=== PATIENT | female | born 1955 | race African-American/Black ===

== ENCOUNTER → 2022-01-16 07:53 | Outpatient (BNVA) | payer MEDICARE, OTHER, SELFPAY | PROVIDERS: Visit Provider Nurse Practitioner Family | DX: G43.909 Migraine, unspecified, not intractable, without status migrainosus (principal); R51.9 Headache, unspecified; M54.2 Cervicalgia | CPT/HCPCS: 99202 ==

== ENCOUNTER → 2022-04-30 10:23 | Outpatient (BNVA) | payer MEDICARE, OTHER, SELFPAY | PROVIDERS: Visit Provider Nurse Practitioner Family | DX: G43.709 Chronic migraine without aura, not intractable, without status migrainosus (principal); M54.2 Cervicalgia | CPT/HCPCS: 99212 ==

== ENCOUNTER → 2022-11-06 07:56 | Outpatient (BNVA) | payer OTHER, MEDICARE, SELFPAY | PROVIDERS: Visit Provider Nurse Practitioner Family | DX: M54.2 Cervicalgia (principal); G43.909 Migraine, unspecified, not intractable, without status migrainosus; H93.19 Tinnitus, unspecified ear; U09.9 Post COVID-19 condition, unspecified | CPT/HCPCS: 99212 ==

== ENCOUNTER → 2022-11-13 13:40 | Outpatient (BNVA) | payer MEDICARE, OTHER, SELFPAY | PROVIDERS: Visit Provider Nurse Practitioner Family | DX: G43.709 Chronic migraine without aura, not intractable, without status migrainosus (principal); R51.9 Headache, unspecified | CPT/HCPCS: 99211 ==

== ENCOUNTER 2023-06-16 08:16 | Outpatient (AMB) | payer MEDICARE, OTHER, SELFPAY ==
[2023-06-16 08:25] VITALS: BP 136/82; BMI 37.7
--- NOTE | 2023-06-16 08:25 | MHC.OFFVIS ---
Intake Vital Signs 06/16/23 08:25 Height 5 ft 2 in Weight 206 lb BMI 37.7 BP 136/82 Blood Pressure Location Rt brachial Position Sitting Intake Visit Reasons: 3m Follow up Migraines/confirmed Intake Note: Patient presents for 3 month follow up. Allergies codeine [CODEINE] Allergy (Unknown, Verified 06/16/23 08:30) ABDOMINAL UPSET oxycodone [From PERCOCET] Allergy (Unknown, Verified 06/16/23 08:30) HALLUCINATIONS sumatriptan Adverse Reaction (Severe, Verified 06/16/23 08:30) Nausea Medication List - Last Reconciled 06/16/23 by Es Saleem, MAKAYLA albuterol 90 mcg/actuation mcg inhalation erenumab-aooe (Aimovig Autoinjector) 140 mg subcut ONCE 30 days famotidine 40 mg PO BEDTIME fluticasone propionate 50 mcg/actuation sprays intranasal gabapentin mg PO BID PRN lisinopril-hydrochlorothiazide 20-12.5 mg 1 tab PO DAILY magnesium oxide 400 mg PO BEDTIME 30 days meloxicam 15 mg PO DAILY PRN metformin 500 mg PO BID onabotulinumtoxinA (Botox) 200 units IM ONCE 12 weeks riboflavin (vitamin B2) 400 mg PO DAILY 30 days tizanidine 2 - 4 mg PO TID PRN HPI HPI Comments History of Present Illness Details 68-yr-old female presents for f/u visit. Pt states that her headaches are improved. Now having 3-4 less intense migraines per week. She can now tell the difference between her sinus headaches and the hungry headaches. She is tolerating Aimovig well- can be constipated, but metformin causes loose stools. Tries to increase her fiber- fruits and vegetables, and metamucil as needed. She felt that her BP was increasing after she started Aimovig- SBP up to 150s- so increased her lisinopril-HCTZ form 1 tab to 1.5 tabs qd. BP now is normotensive- has not taken her BP meds yet today. May hold Magnesium for loose stools. Uses Tylenol w/ a OTC allergy nasal spray which helps. Using Gabapentin at 7pm prn- cannot take too late as it causes am grogginess. Her neck muscles are still tight. Has switched flexeril to tizanidine- using as needed- causes less sleepiness. [facility] Medical History Asthma Diabetes GERD (gastroesophageal reflux disease) Hypertension Low back pain Obstructive sleep apnea Surgical History History of tonsillectomy H/O section H/O section Family History Father Heart attack Sepsis Diabetes Mother HTN (hypertension) Arthritis Household Members: None Alcohol intake: never Patient Tobacco Use Status: Never used Tobacco Review of Systems Const All systems reviewed & are unremarkable except as noted in HPI and below Physical Exam Vital Signs: Last Vital Signs BP 136/82 06/16/23 08:25 BMI result Body Mass Index 37.7 Const General: cooperative and no acute distress Orientation/consciousness: patient oriented x3 HEENT Head: Yes normocephalic Resp Effort & Inspection: normal respiratory effort and able to speak in complete sentences Neuro Other: Bilateral posterior cervical and upper trap tightness, tenderness. General: patient oriented x3, gait normal and CN's II-XI intact bilaterally Cognition (Neuro): normal cognition Motor exam (neuro): 5/5 motor strength present throughout Psych Appearance: grossly normal Mental Status: mental status grossly normal Speech and movement: Normal speech and movement present Affect: normal affect Attitude: cooperative Thought process: Normal thought process present Thought content: Normal thought content present Insight: Good insight present (Psych) Judgement: Good judgement present (Psych) Assessment & Plan Assessment & Plan (1) Chronic migraine without aura: Code(s): G43.709 - Chronic migraine without aura, not intractable, without status migrainosus (2) Headache: Comment: Episodes of brief stabbing head pains, ? Cervicogenic Code(s): R51.9 - Headache, unspecified (3) Cervicalgia: Code(s): M54.2 - Cervicalgia (4) Migraine: Comment: Migraine without aura. ? of 1 episode migraine with ocular aura. Code(s): G43.909 - Migraine, unspecified, not intractable, without status migrainosus Plan For acute migraine treatment: May continue as needed Tylenol. Previous migraine acute tx trials: sumatriptan- caused GI upset. Future considerations- Trial of alternate triptan or gepant. ? For migraine prevention treatment: Continue Aimovig 140mg sc q month. Continue to monitor BPs. Continue riboflavin 400 mg q.a.m. Continue magnesium 400 mg q.h.s.- may hold for loose stools. Patient has previously tried: Topiramate which was not tolerated. Amitriptyline- caused excessive drowsiness. Patient is not a candidate to try: Beta-blockers due to history of asthma. Future considerations: TCA, CGRP mab, Botox- previously not approved. ? For cervicalgia: C-spine XR - multilevel spondylosis, mild degenerative disease most predominant at C4-C5 Offered PT- however pt cannot commit to this at this time- d/t family obligations. Pt is interested in trying trigger point injections- will refer to PT. Tizanidine as needed- managed by PCP. Gabapentin as needed. Advised to use warm packs, stretches/ROM, trial yoga- info given on Xand Future considerations: Baclofen f/u in 6 months or sooner prn Orders: Referrals Pain Management Referral M54.2 - Cervicalgia Coding Level of Care Code Est Pt Level 4 (36099) Diagnoses Chronic migraine without aura G43.709 Headache R51.9 Cervicalgia M54.2 Migraine G43.909
== END 2023-06-16 09:21 | disposition home or self-care (01) ==
PROVIDERS: PCP Internal Medicine; Visit Provider Nurse Practitioner Family
DX: G43.709 Chronic migraine without aura, not intractable, without status migrainosus (principal); R51.9 Headache, unspecified; M54.2 Cervicalgia; G43.909 Migraine, unspecified, not intractable, without status migrainosus
CPT/HCPCS: 99214

== ENCOUNTER → 2023-06-16 08:16 | Outpatient (BNVA) | payer MEDICARE, OTHER, SELFPAY | PROVIDERS: PCP Internal Medicine; Visit Provider Nurse Practitioner Family | DX: M54.2 Cervicalgia (principal) | CPT/HCPCS: 99212 ==

== ENCOUNTER 2023-06-25 13:52 | Outpatient (AMB) | payer OTHER, MEDICARE, SELFPAY ==
[2023-06-25 14:06] VITALS: BP 144/89; PULSE 108; RESP 18; O2SAT 96; BMI 36.9
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
== END 2023-06-25 14:40 | disposition home or self-care (01) ==
PROVIDERS: PCP Internal Medicine; Referring Provider Nurse Practitioner Family; Visit Provider Registered Nurse Emergency
DX: M47.812 Spondylosis without myelopathy or radiculopathy, cervical region (principal)
CPT/HCPCS: 99204

== ENCOUNTER → 2023-06-25 13:52 | Outpatient (BNVA) | payer OTHER, MEDICARE, SELFPAY | PROVIDERS: PCP Internal Medicine; Referring Provider Nurse Practitioner Family; Visit Provider Registered Nurse Emergency | DX: M47.812 Spondylosis without myelopathy or radiculopathy, cervical region (principal) | CPT/HCPCS: 99202 ==

== ENCOUNTER 2023-08-04 06:08 | Outpatient (REF) | payer MEDICARE, OTHER, SELFPAY ==
--- NOTE | ~2023-08-04 | FL_ITS ---
EXAMINATION: XR FLUOROSCOPY WITH IMAGES CLINICAL INFORMATION: Spondylosis without myelopathy or radiculopathy, cervical region. Bilateral cervical injections. COMPARISON: None available. TECHNIQUE: Fluoroscopy Supervised By: Dr. Man Villatoro. Fluoroscopy Time: 60.5 seconds. Cumulative Dose: 11.62 mGy. DAP: Not available on this machine. Images: 8. FINDINGS: Images demonstrate needle placement and contrast injection adjacent to the bilateral lateral mid. Cervical spine FL/FL guidance in treatment room IMPRESSION: Fluoroscopy guidance for pain management procedure.
== END 2023-08-04 06:09 | disposition home or self-care (01) ==
LOC: CF 06:08
PROVIDERS: Visit Provider Anesthesiology
DX: M47.812 Spondylosis without myelopathy or radiculopathy, cervical region (principal); I10 Essential (primary) hypertension
CPT/HCPCS: 64490; 64491; J2795; Q9967

== ENCOUNTER 2023-08-04 07:59 | Outpatient (AMB) | payer OTHER, MEDICARE, SELFPAY ==
[2023-08-04 08:02] VITALS: BP 132/82; PULSE 70; RESP 16; O2SAT 97; BMI 36.9
--- NOTE | 2023-08-04 08:02 | MHC.OFFVIS ---
Intake Vital Signs 08/04/23 08:02 08/04/23 10:43 08/04/23 10:44 08/04/23 10:45 08/04/23 10:45 Height 5 ft 2 in 5 ft 2 in Weight 202 lb 202 lb BMI 36.9 36.9 BP 132/82 158/94 H 152/92 H 150/92 H 140/88 H Blood Pressure Location Lt brachial Rt brachial Rt brachial Rt brachial Lt brachial Position Sitting Sitting Supine Supine Supine Respiration 16 16 16 16 16 Pulse 70 61 Pulse Source Pulse Oximeter Pulse Oximeter Pulse Oximetry (%) 97 98 Oxygen Delivery Method Room Air Room Air Comment Pre-Op post-op 9:30 am 9:45 am 10:15 am Intake Visit Reasons: BILATERAL DIAGNOSTIC C3, C4, C5 MBB, bilateral diagnostic C4- C5- C Allergies codeine [CODEINE] Allergy (Unknown, Verified 08/04/23 11:21) ABDOMINAL UPSET oxycodone [From PERCOCET] Allergy (Unknown, Verified 08/04/23 11:21) HALLUCINATIONS sumatriptan Adverse Reaction (Severe, Verified 08/04/23 11:21) Nausea PFSH Medical History (Updated 08/04/23 @ 12:08 by MAKAYLA Yu) Obstructive sleep apnea Asthma Hypertension GERD (gastroesophageal reflux disease) Diabetes Low back pain Surgical History History of tonsillectomy H/O section H/O section Family History Father Heart attack Sepsis Diabetes Mother HTN (hypertension) Arthritis Social History Household Members: None Alcohol intake: never Patient Tobacco Use Status: Never used Tobacco Physical Exam Vital Signs: Last Vital Signs Pulse 61 08/04/23 10:43 Resp 16 08/04/23 10:45 BP 140/88 H 08/04/23 10:45 Pulse Ox 98 08/04/23 10:43 Oxygen Delivery Method Room Air 08/04/23 10:43 BMI result Body Mass Index 36.9 Results AMB Random Glucose (hemocue) AMB Random Glucose (hemocue) 93 mg/dL Last Edit by Isaiah Washington CMA on 08/04/23 13:14 Assessment & Plan Assessment & Plan (1) Facet arthritis of cervical region: Code(s): M47.812 - Spondylosis without myelopathy or radiculopathy, cervical region Plan: Bilateral C4-C4- C6 therapeutic medial branch block. ?Informed consent was explained to the patient. All questions were explained and answered.? The patient was taken inside the operating room where she was positioned prone on the operating table. Time-out was performed delineating correct site, side, the nature of the procedure, patient's allergy, preoperative antibiotic if needed.? All operating room staff was participating in OR time-out procedure. The back of the neck and upper back were prepped with ChloraPrep and draped with sterile towels.? Sterilely draped C-arm was brought over the operating field and sq picture of? C4-C5-C6 vertebrae were delineated on the screen.? Points of interest were delineated as lateral masses bilaterally of the vertebrae as above. The waste of each lateral mass was chosen as the target of the tip of the needles on AP view and lateral view was used as a safety view for the tips of the needles position.?? The projections of the point of interest to the skin were injected with the small amount of local anesthetic lidocaine 2% 1-1.5 cc.? After that 22 gauge 3and 1/2 inch? spinal needles were driven to the point of interest in tunnel vision fashion. After needles gently contacted the bone at the point of interests the needle was injected with small amount of the contrast. The injections did not demonstrate intravascular or intrathecal spread.. After that ropivacaine 0.5%-1cc. mixed with kenalog was injected into each location of the needles. ( total dose of Kenalog was 40 mgs).? Upon completion of the injections the needles were removed and sterile dressings were applied, the patient was a taken? outside of the operating room to recovery room - see as below . (2) Hypertension: Code(s): I10 - Essential (primary) hypertension Plan: After the patient stood up from the OR table she felt dizziness and drowsiness , she was taken to recovery room and her BP was measured . It was elevated to 156/92 mm Hg. She was given a glass of orange juice and allowed to rest. Her blood pressutre was measured every 15- 20 minutes.it went down a little bit but continue to stay elevated - see vital signs section. The patient wanted to go home but I recommended strongly for her to go to ER or urgent care to see why her blood pressure remains elevated . She went for the local wound care center was evaluated and sent home. She was instructed to take her regular medication lisinopril HCTZ. She was instructed to go to emergency room if her symptoms would become worse. We called patient next morning after the procedure and she reported only lower back pain. We did not request information about neck pain however patient denied dizziness drowsiness and vertigo. Orders: Orders FL guidance in treatment room 08/04/23 M47.812 - Spondylosis without myelopathy or radiculopathy, cervical region Coding Level of Care Code Procedure Only Diagnoses Facet arthritis of cervical region M47.812 Hypertension I10
[2023-08-04 10:43] VITALS: BP 158/94; PULSE 61; RESP 16; O2SAT 98; BMI 36.9
[2023-08-04 10:44] VITALS: BP 152/92; RESP 16
[2023-08-04 10:45] VITALS: BP 140/88; BP 150/92; RESP 16
== END 2023-08-04 10:21 | disposition home or self-care (01) ==
LOC: HO.PMCPRC 07:59
PROVIDERS: PCP Internal Medicine; Visit Provider Anesthesiology
DX: M47.812 Spondylosis without myelopathy or radiculopathy, cervical region (principal); I10 Essential (primary) hypertension
CPT/HCPCS: 64490; 64491

== ENCOUNTER 2023-08-04 11:09 | Outpatient (AMB) | payer MEDICARE, OTHER, SELFPAY ==
--- NOTE | 2023-08-04 11:14 | MHC.OFFWIV ---
Intake Vital Signs 08/04/23 11:15 08/04/23 11:44 Height 5 ft 2 in Weight 200 lb BMI 36.6 BP 140/90 H 140/88 H Blood Pressure Location Lt brachial Lt brachial Position Sitting Pulse 64 Pulse Source Pulse Oximeter Temp 97.2 F Temp Source Temporal Artery Scan Pulse Oximetry (%) 99 Oxygen Delivery Method Room Air Intake Visit Reasons: EP lightheaded off balance BP Intake Note: pt is here today lightheaded off balance bp strarted today after appt Patient Tobacco Use Status: Never used Tobacco Allergies codeine [CODEINE] Allergy (Unknown, Verified 08/04/23 11:21) ABDOMINAL UPSET oxycodone [From PERCOCET] Allergy (Unknown, Verified 08/04/23 11:21) HALLUCINATIONS sumatriptan Adverse Reaction (Severe, Verified 08/04/23 11:21) Nausea Do you need a note to return to daycare/school/sports/work: No HPI HPI Comments History of Present Illness Details Patient is a 68-year-old female in today for a sick visit. Patient has a chief complaint of lightheadedness and dizziness following cervical steroid injection. Patient had the injection 2 hours prior to this visit. She has a past medical history significant for migraines, hypertension, vertigo, and cervicalgia. She has a history of injections, states this is the 1st time she has felt dizzy afterwards. Denies nausea, vomiting, chest pain, shortness a breath, numbness, vomiting, diarrhea, fever. In office EKG obtained. EOM intact, cranial nerves 2-12 intact. Patient able to form heel to toe walking, heel to rojas, epxryf-cp-qfth rapidly. Negative Zee-Hallpike maneuver. [facility] Medical History (Updated 08/04/23 @ 12:08 by MAKAYLA Yu) Obstructive sleep apnea Asthma Hypertension GERD (gastroesophageal reflux disease) Diabetes Low back pain Surgical History History of tonsillectomy H/O section H/O section Family History Father Heart attack Sepsis Diabetes Mother HTN (hypertension) Arthritis Social History Household Members: None Alcohol intake: never Patient Tobacco Use Status: Never used Tobacco Review of Systems Const Details: Constitutional : No Weight loss, No Fever, No Chills, No Fatigue, No Malaise ENT/Mouth : No sore throat, No Rhinorrhea Eyes: No Eye Pain, No Swelling, No Redness Cardiovascular : No Chest Pain, No SOB, No Dyspnea on Exertion, No Orthopnea, No Edema, No Palpitations Respiratory : No Cough, No Sputum, No Wheezing Gastrointestinal : No Nausea, No Vomiting, No Diarrhea, No Constipation, No abdominal Pain, No Hematochezia, No Melena Genitourinary : No Dysuria, No Urinary Frequency, No Hematuria, Musculoskeletal : No joint pain, No Myalgias, No Joint Swelling Skin : No Skin Lesions, No rash Neuro : No Weakness, No Numbness, Admits some Dizziness, No Headache Psych : No Anxiety/Panic, No Depression Heme/Lymph: No Bruising, No Bleeding,No Lymphadenopathy Endocrine : No Polyuria, No Polydipsia All other systems reviewed and are negative Physical Exam Vital Signs: Last Vital Signs Temp 97.2 F 08/04/23 11:15 Pulse 64 08/04/23 11:15 BP 140/90 H 08/04/23 11:15 Pulse Ox 99 08/04/23 11:15 Oxygen Delivery Method Room Air 08/04/23 11:15 BMI result Body Mass Index 36.6 Patient's vital signs reviewed and stable. Const Other: Appearance: Alert.? Oriented X3.? No acute distress.? Head: Normocephalic, atraumatic, no step-offs or deformities Eyes: Pupils equal, round and reactive to light.? ENT: Pharynx normal.?TM intact and pearly alexander. Some sinus tenderness. Neck: Normal inspection.? Neck supple.?Full ROM CVS: Normal heart rate and rhythm.? Pulses normal.? Respiratory: No respiratory distress.? Breath sounds normal.? Abdomen: Soft and nontender.? Skin: Warma and Dry Extremities: No lower extremity edema.? Back: No midline tenderness, no C-spine tenderness, full range of motion. Neuro: Oriented X 3.? No motor deficit.? No sensory deficit. CN 2-12 intact Orientation/consciousness: patient oriented x3 Eyes Pupils: Equal, round and reactive pupils present Neuro General: patient oriented x3, gait normal, CN's II-XI intact bilaterally, deep tendon reflexes 2+ bilaterally and No [place] Hallpike Cranial nerves: Yes Equal, round and reactive pupils present, Yes Bilaterally intact EOM present and Yes Ability to bilaterally rotate head present Cognition (Neuro): normal cognition Motor exam (neuro): 5/5 motor strength present throughout, Pronator motor function not present and no tremor noted Sensory Exam: double simultaneous stimulation for sensation normal Coordination: xlcflh-lt-elfe test normal, hgkg-rj-aqya test normal and Romberg test negative Romberg Test: Negative Comatose Patient: corneal reflex present Office Procedures EKG [id number], Complete Assessment & Plan Assessment & Plan (1) Dizziness: Comment: Patient had in office EKG. Will draw labs. Patient negative Zee-Hallpike. Neuro exam negative. Patient has been instructed to take blood pressure measurements at home. Drink plenty of water. Patient has been educated on signs of worsening symptoms and when to report back to the walk-in clinic or when to present to the emergency room. Patient states she understands Code(s): R42 - Dizziness and giddiness Plan: Take your medications as prescribed. If you were prescribed antibiotics today, it is important that you take your medication to their entirety, do not skip any doses, do not finish them early. Follow-up with your primary care provider this week. Return to the emergency department with new or worsening symptoms. Such as fevers, chills, chest pain, shortness of breath, nausea, vomiting, dizziness, headache, vision changes, lethargy In case of emergency call 911 Plan Patient has been instructed to follow-up with PCP. If symptoms do not reside by this evening patient has been instructed to go the emergency room Orders: Orders Comprehensive Met. Panel Today Z91.89 - Other specified personal risk factors, not elsewhere classified Complete Blood Count Auto Diff Today R42 - Dizziness and giddiness UA CC w/rflx Micro + Cult Today E86.0 - Dehydration AMB EKG-In Office Today R42 - Dizziness and giddiness Coding Level of Care Code Est Pt Level 3 (14813) Diagnoses Dizziness R42 CPT Codes EKG - CPT: 11625-[id number], Complete ([id number]) Time Spent (min) 25
[2023-08-04 11:15] VITALS: BP 140/90; PULSE 64; TEMP 36.2; O2SAT 99; BMI 36.6
[2023-08-04 11:44] VITALS: BP 140/88
== END 2023-08-04 14:13 | disposition home or self-care (01) ==
PROVIDERS: PCP Internal Medicine; Visit Provider Nurse Practitioner Primary Care
DX: R42 Dizziness and giddiness (principal)
CPT/HCPCS: 82948; 93000; 99213

== ENCOUNTER 2023-08-04 12:04 | Outpatient (REF) | payer MEDICARE, OTHER, SELFPAY ==
[2023-08-04 13:29] LABS: Appearance Urine Clear; Color Urine Yellow; Glucose Urine UA Negative (Negative); Leukocyte Esterase Urine Negative (Negative); Nitrite Urine Negative (Negative); Specific Gravity - Urine <= 1.005 (1.005-1.025); Urine Blood Negative (Negative); Urine Ketones Negative (Negative); Urine Protein Negative (Neg-Trace)
[2023-08-04 13:30] LABS: MANUAL DIFF FLAG NO
[2023-08-04 13:33] LABS: Basophils Percent Auto 0.4 % (0-2); Eosinophils Absolute Auto 0.1 X10*3/uL (0.0-0.4); Eosinophils Percent Auto 2.8 % (0-4); Hematocrit 42.1 % (37.0-47.0); Hemoglobin 13.2 g/dl (12.0-16.0); Imm Gran Abs Auto 0.01 X10*3/uL (0.00-0.03); Imm Gran Pct Auto 0.2 % (0.0-0.4); Lymphocytes Absolute Auto 1.6 X10*3/uL (1.2-4.9); Lymphocytes Percent Auto 31.2 % (20-40); Mean Corpuscular HGB Conc 31.4 g/dl (31.0-35.0); Mean Corpuscular Hemoglobin 25.7 pg (27.0-33.0); Mean Corpuscular Volume 82.1 fL (80.0-98.0); Monocytes Absolute Auto 0.4 X10*3/uL (0.1-1.2); Monocytes Percent Auto 7.8 % (2-11); Neutrophils Absolute Auto 2.9 x10*3/uL (2.0-8.3); Neutrophils Percent Auto 57.6 % (45-73); Platelet Count 318 X10*3/uL (160-400); Red Blood Count 5.13 X10*6/uL (4.20-5.50); Red Cell Distribution Width 14.7 % (11.0-16.0)
[2023-08-04 14:08] LABS: Alanine Aminotransferase 28 U/L (0-31); Albumin Level 4.3 g/dL (3.5-5.0); Alkaline Phosphatase 88 U/L (39-117); Anion Gap 14 (12-20); Aspartate Amino Transferase 16 U/L (5-31); Bilirubin Total 0.3 mg/dL (0.0-1.0); Blood Urea Nitrogen 17 mg/dL (9-16); Calcium 10.1 mg/dL (8.4-10.2); Carbon Dioxide 27 mmol/L (22-29); Chloride 104 mmol/L (96-108); Estimated Glomerular Filt Rate 53; Glucose Random 86 mg/dL (60-115); Potassium 3.6 mmol/L (3.3-5.1); Sodium 141 mmol/L (135-145); Total Protein 7.5 g/dL (6.5-8.0)
== END 2023-08-04 12:05 | disposition home or self-care (01) ==
LOC: HO.HMGCLDS 12:04
PROVIDERS: Visit Provider Nurse Practitioner Primary Care
DX: R42 Dizziness and giddiness (principal); E86.0 Dehydration; M47.812 Spondylosis without myelopathy or radiculopathy, cervical region; Z91.89 Other specified personal risk factors, not elsewhere classified
CPT/HCPCS: 36415; 80053; 81003; 85025

== ENCOUNTER 2023-08-11 09:07 | Outpatient (AMB) | payer MEDICARE, OTHER, SELFPAY ==
[2023-08-11 09:16] VITALS: BP 158/94; PULSE 102; RESP 18; O2SAT 97; BMI 36.6
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
== END 2023-08-11 10:01 | disposition home or self-care (01) ==
PROVIDERS: PCP Internal Medicine; Visit Provider Registered Nurse Emergency
DX: M47.812 Spondylosis without myelopathy or radiculopathy, cervical region (principal)
CPT/HCPCS: 99214

== ENCOUNTER → 2023-08-11 09:07 | Outpatient (BNVA) | payer MEDICARE, OTHER, SELFPAY | PROVIDERS: PCP Internal Medicine; Visit Provider Registered Nurse Emergency | DX: M47.812 Spondylosis without myelopathy or radiculopathy, cervical region (principal); Z98.890 Other specified postprocedural states | CPT/HCPCS: 99212 ==

== ENCOUNTER 2023-09-18 11:00 | Outpatient (RCR) | payer MEDICARE, OTHER, SELFPAY ==
[2023-08-28 09:15] VITALS: BP 135/65; PULSE 78
== END 2023-12-08 07:58 | disposition home or self-care (01) ==
LOC: HO.PT 11:00
PROVIDERS: PCP Internal Medicine; Visit Provider Registered Nurse Emergency
DX: M47.816 Spondylosis without myelopathy or radiculopathy, lumbar region (principal)
CPT/HCPCS: 97110; 97140; 97162

== ENCOUNTER 2024-07-19 10:20 | Outpatient (AMB) | payer MEDICARE, OTHER, SELFPAY ==
--- NOTE | 2024-07-19 10:40 | A.OFFVIS_ITS ---
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 Required: No Allergies codeine [CODEINE] Allergy (Unknown, Verified 07/19/24 10:48) ABDOMINAL UPSET oxycodone [From PERCOCET] Allergy (Unknown, Verified 07/19/24 10:48) HALLUCINATIONS sumatriptan Adverse Reaction (Severe, Verified 07/19/24 10:48) Nausea Medication List - Last Reconciled 07/19/24 by MAKAYLA Pierce albuterol 90 mcg/actuation mcg inhalation atorvastatin (Lipitor) 10 mg PO DAILY erenumab-aooe (Aimovig Autoinjector) 140 mg subcut ONCE 30 days famotidine 40 mg PO BEDTIME fluticasone propionate 50 mcg/actuation sprays intranasal gabapentin mg PO BID PRN lisinopril-hydrochlorothiazide 20-12.5 mg 1 tab PO DAILY meloxicam 15 mg PO DAILY PRN metformin 500 mg PO BID riboflavin (vitamin B2) 400 mg PO DAILY 30 days Do you need a note to return to daycare/school/sports/work: No HPI Comments Details: 69-yr-old female presents for f/u visit for migraine. Pt reports the following interval medical history changes: She is having more back and neck pain. If she stands too long, she has low back pain w/ right thigh numbness. Notes her PCP has referred her to weight management. She also had a left trigger finger injection last month. Pt states that her headaches are improved since she had a cervical injection last yr. She now feels she has more of a more so left-sided pressure/sinus headache a/w photophobia, phonophobia, lightheadedness, activity intolerance. Now having 4 mild-moderate migraines per month. She has not had the Aimovig in several months, as she states pharmacy could not refill it for her. Patient has been using Tylenol and Chlorpheniramine as needed, with some effect. The Chlorpheniramine ?dries her out?. She is still prone to posterior cervical neck tightness, especially if she has been more active during the day. She states that she has been tried on baclofen and tizanidine, both of which do help. Better than the cyclobenzaprine. Gabapentin made her sleepy. [facility] Medical History Obstructive sleep apnea Asthma Hypertension GERD (gastroesophageal reflux disease) Diabetes Low back pain Surgical History History of tonsillectomy H/O section H/O section Family History Father Heart attack Sepsis Diabetes Mother HTN (hypertension) Arthritis Social History Household Members: None Alcohol intake: never Patient Tobacco Use Status: Never used Tobacco Physical Exam Vital Signs: Last Vital Signs Pulse 60 07/19/24 10:41 BP 115/68 07/19/24 10:41 Pulse Ox 98 07/19/24 10:41 Oxygen Delivery Method Room Air 07/19/24 10:41 BMI result Body Mass Index 37.0 Const General: cooperative and no acute distress Orientation/consciousness: patient oriented x3 HEENT Head: Yes normocephalic Resp Effort & Inspection: normal respiratory effort and able to speak in complete se ntences Neuro General: patient oriented x3, gait normal and CN's II-XI intact bilaterally Cognition (Neuro): normal cognition Motor exam (neuro): 5/5 motor strength present throughout Psych Appearance: grossly normal Mental Status: mental status grossly normal Speech and movement: Normal speech and movement present Affect: normal affect Attitude: cooperative Thought process: Normal thought process present Assessment & Plan Assessment & Plan (1) Migraine: Comment: Migraine without aura. ? of 1 episode migraine with ocular aura. Code(s): G43.909 - Migraine, unspecified, not intractable, without status migrainosus Category: Medical (2) Headache: Comment: Episodes of brief stabbing head pains, ? Cervicogenic Code(s): R51.9 - Headache, unspecified Category: Medical (3) Cervicalgia: Code(s): M54.2 - Cervicalgia Category: Medical Plan For acute migraine treatment: May continue as needed Tylenol. Hold Chlorpheniramine due to HTN. Trial Ubrogepant (Ubrelvy) 100mg tab, 1/2 - 1 tab (50-100mg) at onset of headache, may repeat in 2 hours. Max of 2 tabs (200mg) per 24 hours. May adjunct with OTC Tylenol 650mg q 4 hours, Ibuprofen 600mg q 6 hours, or Naproxen 440mg q 12 hrs prn. Do not take w/ Butalbital (Fioricet or Fiorinal). Potential adverse effects, include but are not limited to fatigue, nausea, dry mouth, constipation Previous migraine acute tx trials: sumatriptan- caused GI upset. Acute migraine treatment contraindications: Triptans due to HTN/HLD. ? For migraine prevention treatment: Hold Aimovig 140mg sc q month, as patient does not feel she currently needs it. Continue riboflavin 400 mg q.a.m. Continue magnesium 400 mg q.h.s.- may hold for loose stools. Continue lisinopril-HCTZ- prescribed for HTN, however lisinopril can be effective in migraine prevention Patient has previously tried: Topiramate which was not tolerated. Amitriptyline- caused excessive drowsiness. Patient is not a candidate to try: Beta-blockers due to history of asthma. Future considerations: TCA, CGRP mab, Botox- previously not approved. ? For cervicalgia: Resume baclofen 5 mg b.i.d. p.r.n. Encouraged patient to increase physical activity, could consider water aerobics/exercise classes at the local [facility]. Follow-up with pain management as scheduled. f/u in 6 months or sooner prn Medications: New ubrogepant (Ubrelvy) take at onset of migraine, may repeat in 2hrs (may take w/ Tylenol) 50 - 100 mg (0.5 - 1 x 100 mg) PO ONCE 30 days PRN 10 tabs 3RF migraine headache Changed From baclofen Do not take with other muscle relaxants 5 mg PO BID PRN 30 tabs 3RF muscle spasm To baclofen Do not take with other muscle relaxants 5 mg PO BID 30 days PRN 30 tabs 3RF muscle spasm Coding Level of Care Code Est Pt Level 4 (33576) Diagnoses Migraine G43.909 Headache R51.9 Cervicalgia M54.2
[2024-07-19 10:41] VITALS: BP 115/68; PULSE 60; O2SAT 98; BMI 37.0
== END 2024-07-19 11:28 | disposition home or self-care (01) ==
PROVIDERS: PCP Internal Medicine; Visit Provider Nurse Practitioner Family
DX: G43.909 Migraine, unspecified, not intractable, without status migrainosus (principal); R51.9 Headache, unspecified; M54.2 Cervicalgia
CPT/HCPCS: 99214

== ENCOUNTER → 2024-07-19 10:20 | Outpatient (BNVA) | payer MEDICARE, OTHER, SELFPAY | PROVIDERS: PCP Internal Medicine; Visit Provider Nurse Practitioner Family | DX: G43.909 Migraine, unspecified, not intractable, without status migrainosus (principal); R51.9 Headache, unspecified; M54.2 Cervicalgia | CPT/HCPCS: 99212 ==

== ENCOUNTER 2025-06-13 13:17 | Outpatient (AMB) | payer MEDICARE, OTHER, SELFPAY ==
--- OUTSIDE RECORDS SUMMARY | 2024-02-29 04:00 | XMS_ITS ---
Author Organization [employer] Address [address] [address] Care Team Providers Care Booking Officer Name Role Phone JOSE FRIEDMAN M.D. Primary Care Provider Un available Isabel Regalado Unavailable [phone] REASON FOR VISIT LR MEDICARE PE Encounters Encounter Location Date Provider Diagnosis [facility] [address] [address] 02/29/2024 Isabel Regalado Plan Of Treatment No Information Progress Notes * JADEN RENEEDOB: 6 (70 yo F)Acc No.[id number]:02/29/2024 PROGRESS NOTES Patient: JADEN MCMILLAN Appointment Provider: Alie Regalado M.D. :1955 A ge:68 Y S ex:Female Date:02/29/2024 Address:[address] [place], [place] [id number] Pcp:JOSE FRIEDMAN M.D. Subjective: * Chief Complaints: * 1 . LR MEDICARE PE. * Medical History: Objective: * Vitals: Assessment: Plan: * Treatment: * Images: Billing Information: * Visit Code: * Procedure Codes: * Electronic signature of Марина Regalado MD on 06/13/2025 at 05:06 PM EST Sign off status: Pending * Appointment Provider: Alie Regalado M.D. Date: 0 02/29/2024 Generated for Farnazi carmella/Kim/eTransmitting on: 08/13/2024 05:06 PM EST
--- OUTSIDE RECORDS SUMMARY | 2024-05-23 05:20 | XMS_ITS ---
Author Organization [employer] Address [address] [address] Care Team Providers Care Blender Laborer Name Role Phone JOSE FRIEDMAN M.D. Primary Care Provider Un available Isabel Regalado Unavailable [phone] REASON FOR VISIT LR MEDICARE PE Encounters Encounter Location Date Provider Diagnosis [facility] [address] [address] 05/23/2024 Isabel Regalado Plan Of Treatment No Information Progress Notes * JADEN RENEEDOB: (70 yo F)Acc No.[id number]:05/23/2024 PROGRESS NOTES Patient: JADEN MCMILLAN Appointment Provider: Alie Regalado M.D. :1955 A ge:69 Y S ex:Female Date:05/23/2024 Address:[address] [place], [place] [id number] Pcp:JOSE FRIEDMAN M.D. Subjective: * Chief Complaints: * 1 . LR MEDICARE PE. * Medical History: Objective: * Vitals: Assessment: Plan: * Treatment: * Images: Billing Information: * Visit Code: * Procedure Codes: * Electronic signature of Марина Regalado MD on 06/13/2025 at 05:06 PM EST Sign off status: Pending * Appointment Provider: Alie Regalado M.D. Date: 07/23/2023 Generated for Claudia weir/Kim/eTransmitting on: 08/13/2024 05:06 PM EST
[2025-06-13 13:23] VITALS: BP 120/70; PULSE 50; O2SAT 97; BMI 36.6
--- NOTE | 2025-06-13 13:23 | MHC.OFFVIS ---
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: No Accompanied by: Self / Same As Patient Allergies codeine (CODEINE) Allergy (Unknown, Verified 06/13/25 13:23) ABDOMINAL UPSET oxycodone (From PERCOCET) Allergy (Unknown, Verified 06/13/25 13:23) HALLUCINATIONS sumatriptan Adverse Reaction (Severe, Verified 06/13/25 13:23) Nausea Medication List - Last Reconciled 06/13/25 by MAKAYLA Pierce albuterol 90 mcg/actuation mcg inhalation atorvastatin (Lipitor) 10 mg PO DAILY baclofen 5 mg PO BID PRN 90 days erenumab-aooe (Aimovig Autoinjector) 140 mg subcut ONCE 30 days famotidine 40 mg PO BEDTIME fluticasone propionate 50 mcg/actuation sprays intranasal gabapentin mg PO BID PRN lisinopril-hydrochlorothiazide 20-12.5 mg 1 tab PO DAILY meloxicam 15 mg PO DAILY PRN metformin 500 mg PO BID riboflavin (vitamin B2) 400 mg PO DAILY 30 days ubrogepant (Ubrelvy) 50 - 100 mg (0.5 - 1 x 100 mg) PO ONCE PRN 30 days Do you need a note to return to daycare/school/sports/work: No HPI Comments Details: 70-yr-old female presents for f/u visit for migraine. She recently underwent f/u sleep study as she needed a new BiPAP. She is concerned about low energy- in setting of lower B12 level and h/o anemia. Has some leg movements- not sure if RLS or just habit. She states that she is taking Baclofen BID, which helps to prevent neck pain, muscle tightness, and her headaches. She has stopped scheduled Gabapentin, now only using as needed- as this makes her feel drowsy- like she has a hang-over. She is doing stretching exercises and manuel-chi type exercises. She is having more back and neck pain. If she stands too long, she has low back pain w/ right thigh numbness. Her PCP has referred her to weight management- however they would not non-surgical candidates. She has not needed to try the Ubrelvy yet, but she does have it. Patient has been using Tylenol and Chlorpheniramine as needed, with some effect. The Chlorpheniramine ?dries her out?. 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 [facility] Medical History (Updated 06/13/25 @ 14:16 by MAKAYLA Pierce) Anemia Obstructive sleep apnea Asthma Hypertension GERD (gastroesophageal reflux disease) Diabetes Low back pain Surgical History (Updated 06/13/25 @ 13:30 by Nayeli Zavaleta CMA) Hx of hand surgery History of tonsillectomy H/O section H/O section Family History Father Heart attack Sepsis Diabetes Mother HTN (hypertension) Arthritis Social History Household Members: None Alcohol intake: never Patient Tobacco Use Status: Never used Tobacco Physical Exam Vital Signs: Last Vital Signs Pulse 50 06/13/25 13:23 BP 120/70 06/13/25 13:23 Pulse Ox 97 06/13/25 13:23 Oxygen Delivery Method Room Air 06/13/25 13:23 BMI result Body Mass Index 36.6 Const General: cooperative and no acute distress Orientation/consciousness: patient oriented x3 HEENT Head: Yes normocephalic Resp Effort & Inspection: normal respiratory effort and able to speak in complete sentences Neuro General: patient oriented x3, gait normal and CN's II-XI intact bilaterally Cognition (Neuro): normal cognition Motor exam (neuro): 5/5 motor strength present throughout Psych Appearance: grossly normal Mental Status: mental status grossly normal Speech and movement: Normal speech and movement present Affect: normal affect Attitude: cooperative Thought process: Normal thought process present Assessment & Plan Assessment & Plan (1) Migraine: Comment: Migraine without aura. ? of 1 episode migraine with ocular aura. Code(s): G43.909 - Migraine, unspecified, not intractable, without status migrainosus Category: Medical Qualifiers: Migraine type: migraine (< 15 days per month) without aura Status migrainosus presence: without status migrainosus Intractability: not intractable (2) Headache: Comment: Episodes of brief stabbing head pains, ? Cervicogenic Code(s): R51.9 - Headache, unspecified Category: Medical Qualifiers: Headache type: primary stabbing headache (3) Cervicalgia: Code(s): M54.2 - Cervicalgia Category: Medical Plan For low energy- BiPAP as ordered by [facility] Will check CBC, folate, iron, ferritin, homocysteine, MMA leveels- pt may do at [facility] per her preference For acute migraine treatment: May continue as needed Tylenol. Hold Chlorpheniramine due to HTN. When needed, trial Ubrogepant (Ubrelvy) 100mg tab, 1/2 - 1 tab (50-100mg) at onset of headache, may repeat in 2 hours. Max of 2 tabs (200mg) per 24 hours. May adjunct with OTC Tylenol 650mg q 4 hours, Ibuprofen 600mg q 6 hours, or Naproxen 440mg q 12 hrs prn. Potential adverse effects, include but are not limited to fatigue, nausea, dry mouth, constipation Previous migraine acute tx trials: sumatriptan- caused GI upset. Acute migraine treatment contraindications: Triptans due to HTN/HLD. ? For migraine prevention treatment: Hold Aimovig 140mg sc q month, as patient does not feel she currently needs it. Resume riboflavin 400 mg q.a.m.- if needed Continue magnesium 400 mg every other night to nightly- as it causes some loose stools for pt Continue lisinopril-HCTZ- prescribed for HTN, however lisinopril can be effective in migraine prevention Continue Baclofen 5mg BID Patient has previously tried: Topiramate which was not tolerated. Amitriptyline- caused excessive drowsiness. Patient is not a candidate to try: Beta-blockers due to history of asthma. Future considerations: TCA, CGRP mab, Botox- previously not approved. ? For cervicalgia: Continue baclofen 5 mg b.i.d. p.r.n. May use Gabapentin prn Encouraged patient to increase physical activity, could consider water aerobics/exercise classes at the local [facility]. Follow-up with pain management as scheduled. Will follow-up upon review of above and patient to follow-up in clinic in 12 months or sooner prn. Orders: Orders Complete Blood Count Auto Diff Today D64.9 - Anemia, unspecified, R79.89 - Other specified abnormal findings of blood chemistry Ferritin Today D64.9 - Anemia, unspecified, R79.89 - Other specified abnormal findings of blood chemistry Folate Today D64.9 - Anemia, unspecified Homocysteine Today D64.9 - Anemia, unspecified, R79.89 - Other specified abnormal findings of blood chemistry Methylmalonic Acid Today D64.9 - Anemia, unspecified, R79.89 - Other specified abnormal findings of blood chemistry IRON PROFILE Today D64.9 - Anemia, unspecified, R79.89 - Other specified abnormal findings of blood chemistry Coding Level of Care Code Est Pt Level 4 (58771) Diagnoses Migraine G43.909 Migraine type: migraine (< 15 days per month) without aura Status migrainosus presence: without status migrainosus Intractability: not intractable Headache R51.9 Headache type: primary stabbing headache Cervicalgia M54.2
== END 2025-06-13 14:18 | disposition home or self-care (01) ==
LOC: HO.HSMS 13:17
PROVIDERS: PCP Internal Medicine; Visit Provider Nurse Practitioner Family
DX: G43.909 Migraine, unspecified, not intractable, without status migrainosus (principal); R51.9 Headache, unspecified; M54.2 Cervicalgia
CPT/HCPCS: 99214

== ENCOUNTER → 2025-06-13 13:17 | Outpatient (BNVA) | payer MEDICARE, OTHER, SELFPAY | PROVIDERS: PCP Internal Medicine; Visit Provider Nurse Practitioner Family | DX: G43.909 Migraine, unspecified, not intractable, without status migrainosus (principal); M54.2 Cervicalgia | CPT/HCPCS: 99212 ==